=== PATIENT | female | born 1970 | race Caucasian/White ===

== ENCOUNTER 2016-09-19 20:42 | Emergency (ER) | payer OTHER ==
[2016-09-19] MEDS ORDERED: Ketorolac Tromethamine 30 MG/ML VIAL ONE (20:59)
[2016-09-19] MEDS ORDERED: diphenhydrAMINE HCl 50 MG/ML 1 ML VIAL ONE (20:59)
[2016-09-19] MEDS ORDERED: Promethazine HCl 25 MG/ML VIAL ONE (20:59)
[2016-09-19] MEDS ORDERED: Ondansetron HCl/PF 4 MG/2 ML Vial ONE (21:43)
[2016-09-19] MEDS ORDERED: Fentanyl 100 MCG/2 ML VIAL ONE (22:19)
[2016-09-19] MEDS ORDERED: Lorazepam 2 MG/ML VIAL ONE (23:30)
== END 2016-09-20 00:05 | disposition home or self-care (01) ==
LOC: NAV ERS 20:42
DX: G43.909 Migraine, unspecified, not intractable, without status migrainosus (principal); G50.0 Trigeminal neuralgia; F41.9 Anxiety disorder, unspecified; F32.9 Major depressive disorder, single episode, unspecified; Z79.899 Other long term (current) drug therapy
CPT/HCPCS: 96365; 96375; J1200; J1885; J2060; J2405; J2550; J3010